=== PATIENT | male | born 1990 | race Caucasian/White ===

== ENCOUNTER 2021-08-28 14:24 | Outpatient (CLI) | payer OTHER, SELFPAY ==
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
[2021-08-28 15:44] LABS: Basophils # 0.1 10^3/uL (0.0-0.1); Basophils % 1.1 %; Eosinophils # 0.4 10^3/uL (0.0-0.8); Eosinophils % 4.8 %; Hematocrit 42.7 % (42.0-52.0); Hemoglobin 14.1 g/dL (11.7-16.6); Lymphocytes # 3.1 10^3/uL (0.8-4.8); Lymphocytes % 35.5 %; Mean Corpuscular Hemoglobin 28.7 pg (28.0-34.0); Mean Platelet Volume 10.3 fL (7.4-10.4); Monocytes # 0.6 10^3/uL (0.2-0.9); Monocytes % 6.7 %; Neutrophils # 4.56 10^3/uL (1.8-7.7); Neutrophils % 51.6 %; Nucleated Red Blood Cells % 0 %; Platelet Count 314 10^3/cmm (130-400); Red Blood Count 4.91 10^6/uL (4.1-5.3); Red Cell Distribution Width 13.2 % (12.1-15.1); White Blood Count 8.8 10^3/uL (4.0-10.0)
[2021-08-28 16:16] LABS: Alanine Aminotransferase 14 U/L (0-41); Albumin Level 4.4 g/dL (3.5-5.2); Alkaline Phosphatase 61 IU/L (40-130); Anion Gap 18.2 (5-19); Aspartate Amino Transferase 14 U/L (0-40); Blood Urea Nitrogen 15 mg/dL (6-20); Calcium 8.8 mg/dL (8.5-10.5); Carbon Dioxide 23 mmol/L (22-29); Chloride 102 mmol/L (98-107); Chol HDL Ratio 3.92 mg/dL (1.0-5.00); Cholesterol 204 mg/dL (0-200); Globulin 2.8 g/dL (1.3-4.6); Glomerular Filtration Rate 99.8 mL/min (90-130); Glucose 90 mg/dL (65-115); HDL Cholesterol 52 mg/dL (60-100); LDL Cholesterol Calculated 98 mg/dL (50-129); LDL HDL Ratio 1.88 RATIO (0.00-3.22); Osmolality Calculated 288 mOsm/kg (285-295); Potassium 4.2 mmol/L (3.5-5.1); Sodium 139 mmol/L (136-145); Testosterone Total 47.4 ng/dL (249-836); Thyroid Stimulating Hormone 3.15 uIU/mL (0.27-4.20); Total Bilirubin 0.2 mg/dL (0.15-1.2); Total Protein 7.2 g/dL (6.6-8.7); Triglycerides 271 mg/dL (0-150)
[2021-08-28 16:29] LABS: Estmated Average Glucose 131; Hemoglobin A1C 6.2 % (4.0-6.0)
[2021-08-28 17:11] LABS: Vitamin B12 618 pg/mL (232-1245)
[2021-08-29 06:12] LABS: T4 Total 6.6 mcg/dL (4.9-10.5)
== END 2021-08-28 14:25 | disposition home or self-care (01) ==
LOC: RAD 14:31
PROVIDERS: PCP Nurse Practitioner Family; Visit Provider Nurse Practitioner Family
DX: M54.50 Low back pain, unspecified (principal); V89.2XXA Person injured in unspecified motor-vehicle accident, traffic, initial encounter; M54.6 Pain in thoracic spine
CPT/HCPCS: 36415; 72072; 72100; 80053; 80061; 82607; 83036; 84403; 84436; 84443; 85025

== ENCOUNTER 2021-10-17 14:13 | Outpatient (CLI) | payer OTHER, SELFPAY ==
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
== END 2021-10-17 14:14 | disposition home or self-care (01) ==
LOC: RAD 14:16
PROVIDERS: PCP Nurse Practitioner Family; Visit Provider Nurse Practitioner Family
DX: M62.838 Other muscle spasm (principal); V89.2XXD Person injured in unspecified motor-vehicle accident, traffic, subsequent encounter; M51.26 Other intervertebral disc displacement, lumbar region; M47.816 Spondylosis without myelopathy or radiculopathy, lumbar region
CPT/HCPCS: 72141; 72146; 72148

== ENCOUNTER → 2022-01-18 15:00 | Outpatient (BNVA) | payer OTHER, SELFPAY | PROVIDERS: PCP Nurse Practitioner Family; Visit Provider Nurse Practitioner | DX: R06.02 Shortness of breath (principal) | CPT/HCPCS: 71046; 84403; 85025 ==

== ENCOUNTER 2023-06-04 18:36 | Emergency (ER) | payer OTHER, SELFPAY ==
--- NOTE | 2023-06-04 18:40 | USR_ITS ---
PROCEDURE INFORMATION: Exam: US Abdomen, Limited; Right Upper Quadrant Exam date and time: 06/04/2023 7:07 PM Age: 33 years old Clinical indication: Abdominal pain; Other: Ruq pain x 4-5 days with diarrhea, n+v TECHNIQUE: Imaging protocol: Real time ultrasound of the abdomen with image documentation. Limited exam focused on the right upper quadrant. COMPARISON: MR lumbar spine wo con* [id number] 10/17/2021 4:28 PM FINDINGS: Liver: Liver is slightly enlarged measuring about 17.8 cm in length. Suspect fatty infiltration. Normal directional flow in the portal vein. Gallbladder: No gallstones or sludge. However there is wall thickening measuring about 5.4 mm. Foster's sign reported positive. Biliary ducts: Normal. No stones. No dilation. Pancreas: The pancreas was obscured. Right kidney: Normal. No mass. No hydronephrosis. US/US gall bladder [id number] IMPRESSION: 1. Mildly enlarged liver with fatty infiltration. 2. Thickened gallbladder wall with no stones or sludge but positive Foster's sign. Questionable acalculous cholecystitis.
[2023-06-04 18:46] VITALS: BP 180/128; PULSE 75; RESP 16; TEMP 36.7; O2SAT 100; BMI 36.6
--- NOTE | 2023-06-04 19:49 | W.ED.ABDPA2 ---
HPI - Abdominal Pain General: Chief Complaint: Abdominal Pain Stated Complaint: Clinic Sent Possible Gallbladder Time Seen by Provider: 06/04/23 19:15 Source: patient Mode of arrival: ambulatory Limitations: no limitations History of Present Illness: 33-year-old male states that over the last week he has been having right upper quadrant pain. He states the pain is mainly after he eats he states that after he eats he gets a sharp stabbing pain in his right upper quadrant he has had nausea with it as well along with some vomiting diarrhea. He denies any fevers no history of any abdominal surgeries in the past. Associated Symptoms: Reports diarrhea, nausea and vomiting; Denies chills and fever(s) Review of Systems Const: Denies: fever(s) or chills ENMT: Denies: throat pain or dental pain Card: Denies: chest pain Resp: Denies: dyspnea GI: Reports: abdominal pain, nausea, vomiting and diarrhea Musc: Denies: neck pain or back pain Skin/Breast: Denies: rash Neuro: Denies: headache(s) PFSH ED PFSH: Medical History Essential hypertension Long-term current use of testosterone replacement therapy Surgical History History of surgery on right wrist Family History Father Diabetes Denies family history of CAD (coronary artery disease) Chronic kidney disease (CKD) Cancer Hypertension Stroke Social History Smoking and tobacco status: never smoked Second hand smoke exposure: No Smoking risk assessment/counseling performed?: No Alcohol intake: current Alcohol intake frequency: holidays/special occasions only Desire information about alcohol rehabilitation?: No Counseling given: No Substance/Drug Use: never Desire information about substance/drug rehabilitation?: No Counseling given: No Adopted: No Caregiver/support person: No Lives independently: Yes Household members: significant other and children Housing: House Marital status: Single Number of children: 2 service: No Current occupational status: employed 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 Pets and animals: No Do you think of yourself as: Straight/Heterosexual Current gender identity: Male Physical Exam Const: COMMON NORMALS: no acute distress, patient oriented x3 and healthy appearing HENMT: COMMON NORMALS: normocephalic and atraumatic HEAD & SCALP: normocephalic and atraumatic Neck/C-Spine: COMMON NORMALS: full ROM and supple Chest: COMMONS NORMALS: normal inspection of the chest Resp: COMMON NORMALS: normal respiratory effort, No retractions, No use of accessory muscles and clear to auscultation bilaterally AUSCULTATION: clear to auscultation bilaterally Cardio: COMMON NORMALS: regular rate, regular rhythm and No murmurs present (Cardio) RATE: regular rate RHYTHM: regular rhythm GI: COMMON NORMALS: Normal to inspection, nondistended, normoactive bowel sounds present, Soft to palpation and no masses PALPATION: Yes Soft to palpation and Yes Tenderness to palpation present (GI) Details: RUQ Extremity: COMMON NORMALS: normal to inspection and full ROM Neuro: COMMON NORMALS: patient oriented x3, moves all extremities and no focal motor deficits Psych: COMMON NORMALS: mental status grossly normal, Normal thought process present and cooperative THOUGHT PROCESS: Normal thought process present Skin: COMMON NORMALS: no rashes or lesions noted and no wounds GENERAL SKIN EXAM: no rashes or lesions noted Course Vital Signs: Vital signs: Vital Signs Temperature 98.0 F 06/04/23 21:51 Pulse Rate 73 06/04/23 21:51 Respiratory Rate 16 06/04/23 21:51 Blood Pressure 151/105 06/04/23 21:51 Pulse Oximetry 98 06/04/23 21:51 Oxygen Delivery Me thod Room Air 06/04/23 18:46 MDM - Abdominal Pain Medical Decision Making 33-year-old male he states that he been having abdominal pain ultrasound did show slightly thickened gallbladder wall his pains improved here he has no tenderness at discharge he has no white count or fever no signs of acute cholecystitis we will place him on Augmentin along with pain meds we will get him follow-up with surgery I did inform if he has fever or worsening pain he is to return he understands agrees to plan. Medical Records I reviewed the patient's medical records. Lab Data I reviewed the patient's lab results. 06/04/23 19:52 06/04/23 19:52 Labs/Radiology: Radiology Impressions Gallbladder Ultrasound 06/04/23 18:40 IMPRESSION: 1. Mildly enlarged liver with fatty infiltration. 2. Thickened gallbladder wall with no stones or sludge but positive Foster's sign. Questionable acalculous cholecystitis. Laboratory Results WBC 10.47 10^3/uL (3.29-11.43) 06/04/23 19:52 Corrected WBC Cancelled 06/04/23 19:00 RBC 5.03 10^6/uL (3.85-5.65) 06/04/23 19:52 Hgb 14.40 g/dL (11.27-16.99) 06/04/23 19:52 Hct 43.3 % (37-53) 06/04/23 19:52 MCV 86.1 fl (82-101) 06/04/23 19:52 MCH 28.6 pg (27-33) 06/04/23 19:52 MCHC 33.3 g/dL (30-55) 06/04/23 19:52 RDW 13.5 % (12.1-15.1) 06/04/23 19:52 Plt Count 373 10^3/cmm (157-399) 06/04/23 19:52 MPV 10.0 fL (7.4-10.4) 06/04/23 19:52 Gran % Cancelled 06/04/23 19:00 Neut % (Auto) 54.9 % 06/04/23 19:52 Lymph % (Auto) 36.1 % 06/04/23 19:52 [place] % (Auto) 5.3 % 06/04/23 19:52 Eos % (Auto) 2.3 % 06/04/23 19:52 Baso % (Auto) 0.8 % 06/04/23 19:52 Neut # (Auto) 5.76 10^3/uL (1.8-7.7) 06/04/23 19:52 Lymph # (Auto) 3.8 10^3/uL (0.8-4.8) 06/04/23 19:52 [place] # (Auto) 0.6 10^3/uL (0.2-0.9) 06/04/23 19:52 Eos # (Auto) 0.2 10^3/uL (0.0-0.8) 06/04/23 19:52 Baso # (Auto) 0.1 10^3/uL (0.0-0.1) 06/04/23 19:52 Absolute Gran (auto) Cancelled 06/04/23 19:00 Nucleated RBC % (auto) 0 % 06/04/23 19:52 Nucleated RBCs # 0.0 /100WBC 06/04/23 19:52 Sodium 140 mmol/L (136-145) 06/04/23 19:52 Potassium 4.0 mmol/L (3.5-5.1) 06/04/23 19:52 Chloride 102 mmol/L (98-107) 06/04/23 19:52 Carbon Dioxide 28 mmol/L (22-29) 06/04/23 19:52 Anion Gap 14.0 (5-19) 06/04/23 19:52 BUN 12 mg/dL (6-20) 06/04/23 19:52 Creatinine 1.2 mg/dL (0.7-1.2) 06/04/23 19:52 GFR Calculation 70.6 mL/min (90-130) L 06/04/23 19:52 Glucose 106 mg/dL (65-115) 06/04/23 19:52 Calculated Osmolality 290 mOsm/kg (285-295) 06/04/23 19:52 Calcium 9.1 mg/dL (8.5-10.5) 06/04/23 19:52 Total Bilirubin 0.2 mg/dL (0.15-1.2) 06/04/23 19:52 AST 17 U/L (0-40) 06/04/23 19:52 ALT 25 U/L (0-41) 06/04/23 19:52 Alkaline Phosphatase 82 U/L (40-130) 06/04/23 19:52 Total Protein 7.8 g/dL (6.6-8.7) 06/04/23 19:52 Albumin 4.8 g/dL (3.5-5.2) 06/04/23 19:52 Globulin 3.0 g/dL (1.3-4.6) 06/04/23 19:52 Lipase 30 U/L (13-60) 06/04/23 19:52 All radiology interpretation(s) finalized by discharge Discharge Plan Discharge Patient Disposition: Home Clinical Impression: Abdominal pain Condition: Stable Prescriptions: New hydrocodone-acetaminophen 5-325 mg tablet 1 tab PO Q6H PRN (Reason: pain) Qty: 14 0RF ondansetron 4 mg tablet,disintegrating 4 mg PO Q6H PRN (Reason: nausea and vomiting) Qty: 14 0RF Augmentin 500-125 mg tablet 1 tab PO BID Qty: 14 0RF No Action doxycycline hyclate [Vibramycin] 100 mg capsule 100 mg PO BID Qty: 20 0RF prednisone 5 mg tablet 5 mg PO DAILY Qty: 5 0RF lisinopril 20 mg tablet 20 mg PO DAILY testosterone cypionate 200 mg/mL oil 300 mg SUBCUT .21 days duloxetine 30 mg capsule,delayed release(DR/EC) 30 mg PO DAILY Qty: 30 1RF gabapentin 800 mg tablet 800 mg PO BID Qty: 60 5RF Discharge Orders: Discharge ED (Routine); Ordered 06/04/23 Ordered By: Adrián Pritchard Referrals: Neftali Buck DO [Physician] - 1-3 days Discharge Diet: Advance as tolerated Discharge Activity: Resume usual activity Patient Instructions: Biliary Colic (ED), Abdominal Pain (ED) 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
[2023-06-04] MEDS: ondansetron 2 mg/ML SDV 2 mL 4 MG IVP ×2 (20:03→21:47)
[2023-06-04 20:05] VITALS: RESP 16
[2023-06-04 20:05] LABS: Basophils # 0.1 10^3/uL (0.0-0.1); Basophils % 0.8 %; Eosinophils # 0.2 10^3/uL (0.0-0.8); Eosinophils % 2.3 %; Hematocrit 43.3 % (37-53); Lymphocytes # 3.8 10^3/uL (0.8-4.8); Lymphocytes % 36.1 %; Mean Corpuscular HGB Conc 33.3 g/dL (30-55); Mean Corpuscular Hemoglobin 28.6 pg (27-33); Mean Corpuscular Volume 86.1 fl (82-101); Monocytes # 0.6 10^3/uL (0.2-0.9); Monocytes % 5.3 %; Neutrophils # 5.76 10^3/uL (1.8-7.7); Neutrophils % 54.9 %; Nucleated Red Blood Cells % 0 %; Platelet Count 373 10^3/cmm (157-399); Red Blood Count 5.03 10^6/uL (3.85-5.65); Red Cell Distribution Width 13.5 % (12.1-15.1); White Blood Count 10.47 10^3/uL (3.29-11.43)
[2023-06-04] MEDS: morphine 4 mg/mL SDV 1 mL IVP (20:05)
[2023-06-04 20:24] VITALS: BP 151/105; PULSE 73; RESP 16; O2SAT 98
[2023-06-04 20:33] LABS: Alanine Aminotransferase 25 U/L (0-41); Albumin Level 4.8 g/dL (3.5-5.2); Alkaline Phosphatase 82 U/L (40-130); Aspartate Amino Transferase 17 U/L (0-40); Blood Urea Nitrogen 12 mg/dL (6-20); Calcium 9.1 mg/dL (8.5-10.5); Carbon Dioxide 28 mmol/L (22-29); Chloride 102 mmol/L (98-107); Glomerular Filtration Rate 70.6 mL/min (90-130); Glucose 106 mg/dL (65-115); Lipase 30 U/L (13-60); Osmolality Calculated 290 mOsm/kg (285-295); Sodium 140 mmol/L (136-145); Total Bilirubin 0.2 mg/dL (0.15-1.2); Total Protein 7.8 g/dL (6.6-8.7)
[2023-06-04 21:51] VITALS: BP 151/105; PULSE 73; RESP 16; TEMP 36.7; O2SAT 98
--- NOTE | 2023-06-05 08:06 | PC.SOCIAL ---
General Surgery F/u Message sent to clinic at this time requesting appt, clinic to contact patient with appt date/time.
== END 2023-06-04 21:52 | disposition home or self-care (01) ==
PROVIDERS: Emergency Provider Emergency Medicine
DX: R10.11 Right upper quadrant pain (principal); I10 Essential (primary) hypertension; Z79.890 Hormone replacement therapy
CPT/HCPCS: 36415; 76705; 80053; 83690; 85025; 96374; 96375; 96376; 99284; J2270; J2405

== ENCOUNTER → 2023-08-07 16:12 | Outpatient (BNVA) | payer OTHER, SELFPAY | PROVIDERS: PCP Nurse Practitioner Family; Visit Provider Nurse Practitioner Family | DX: J02.9 Acute pharyngitis, unspecified (principal) | CPT/HCPCS: 87071; 87880 ==

== ENCOUNTER 2024-08-21 20:31 | Emergency (ER) | payer BC, SELFPAY ==
[2024-08-21 20:33] VITALS: BP 153/84; PULSE 74; RESP 17; TEMP 36.7; O2SAT 100; BMI 32.5
--- NOTE | 2024-08-21 20:47 | XRR_ITS ---
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 Has laceration to anterior aspect of finger. PT has hand wrapped at this time with bleeding controlled. Prior surgery; Surgery date: 6+ months; Surgery type: Right wrist TECHNIQUE: Imaging protocol: Radiologic exam of the right hand. Views: 3 or more views. COMPARISON: No relevant prior studies available. FINDINGS: Bones/joints: The middle finger is intact. The remaining bones of the hand are intact. No significant degenerative changes. There is chronic internal fixation of the scaphoid. Soft tissues: Mild swelling of the 3rd finger. XR/XR hand RT min 3V* [id number] IMPRESSION: 1. No acute bony findings 2. Chronic internal fixation of the scaphoid
[2024-08-21] MEDS: tetanus-dipt-pertussis 0.5 mL SDV IM (20:58)
[2024-08-21] MEDS: HYDROcodone-acetaminophen 7.5-325 mg Tablet 1 TAB PO (20:59)
--- NOTE | 2024-08-21 21:34 | W.ED.EXTPRO ---
HPI - Extremity Problem General: Chief complaint: Extremity Injury, Upper Stated complaint: Injury Rt Hand Time Seen by Provider: 08/21/24 20:44 Source: patient Mode of arrival: ambulatory Limitations: no limitations History of Present Illness: Patient is a 34-year-old male who presents to the emergency department after injuring right hand just prior to arrival. He was reportedly doing [employer] work and got it jammed and subsequently cut, arrives with a laceration to volar aspect of right middle finger, bleeding controlled. Not on any blood thinners. Tetanus not up-to-date. Reporting some numbness to the middle finger. No other injuries or pertinent historical factors to report at this time. He is right-hand dominant. MD Complaint: extremity pain Onset (ago): minute(s) Pain Consistency: constant Location: right and upper extremity Radiation: distal Relieving factors: nothing Associated symptoms: Deny chest pain, fever(s) or rash Related Data Home Medications Medication Instructions Recorded Confirmed lisinopril 20 mg tablet 20 mg PO DAILY 01/18/22 07/21/24 testosterone cypionate 200 mg/mL 300 mg SUBCUT .21 days 01/18/22 05/05/24 intramuscular oil Previous Rx's Medication Instructions Recorded duloxetine 30 mg capsule,delayed 30 mg PO DAILY #30 caps 01/26/23 release ondansetron 4 mg disintegrating 4 mg PO Q6H PRN nausea and 07/08/23 tablet vomiting #30 tabs azithromycin 250 mg tablet See Rx Instructions PO .COMPLEX #6 08/07/23 tabs [id number] 3.5 2 drp ophthalmic (eye) Q4H 7 days 08/07/23 mg/mL-10,000 unit/mL-0.1% eye #5 mL drops (Maxitrol) ondansetron 4 mg disintegrating 4 mg PO Q6H PRN nausea and 08/07/23 tablet vomiting #20 tabs pantoprazole 40 mg tablet,delayed 40 mg PO DAILY stomach acid #90 08/28/23 release tabs cyclobenzaprine 10 mg tablet 10 mg PO TID PRN muscle spasm #30 02/11/24 tabs gabapentin 800 mg tablet 800 mg PO BID #60 tabs 04/27/24 ketoconazole 2 % topical cream 1 applic topical BID #15 grams 05/04/24 prednisone 10 mg tablets in a dose See Rx Instructions PO PER PKG DIR 05/04/24 pack #21 ea terbinafine HCl 250 mg tablet 250 mg PO DAILY #14 tabs 05/04/24 triamcinolone acetonide 0.1 % 1 applic topical TID #15 grams 05/04/24 topical ointment hydrocodone 5 mg-acetaminophen 325 1 - 2 tab PO Q6H PRN pain 1 week 08/12/24 mg tablet #56 tabs prednisone 20 mg tablet See Rx Instructions PO BID #15 tabs 08/14/24 cephalexin 500 mg capsule 500 mg PO BID 7 days #14 caps 08/21/24 Allergies Allergy/AdvReac Type Severity Reaction Status Date / Time No Known Allergies Allergy Unverified 08/21/24 20:33 Review of Systems General: Reports: 10 or more systems reviewed and unremarkable except in HPI and below Const: Denies: fever(s) or chills Card: Denies: chest pain Resp: Denies: dyspnea GI: Denies: abdominal pain, nausea, vomiting or diarrhea Musc: Reports: extremity pain (Right hand); Denies: joint pain Skin/Breast: Reports: new lesions (Laceration to right middle finger); Denies: rash, skin pain or skin tenderness Neuro: Denies: headache(s) PFSH ED PFSH: Medical History Long-term current use of testosterone replacement therapy Essential hypertension Surgical History History of surgery on right wrist Family History Father Diabetes Denies family history of CAD (coronary artery disease) Chronic kidney disease (CKD) Cancer Hypertension Stroke Social History Smoking and tobacco/nicotine status: never used tobacco/nicotine Second hand smoke exposure: No Alcohol intake: current Alcohol intake frequency: holidays/special occasions only Substance/Drug Use: never Adopted: No Caregiver/support person: No Lives independently: Yes Household members: significant other and children Housing: House Marital status: Single Number of children: 2 service: No Current occupational status: employed 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 Pets and animals: No Do you think of yourself as: Straight/Heterosexual Current gender identity: Male Physical Exam Const: COMMON NORMALS: no acute distress, average body habitus, patient oriented x3, no limitations, healthy appearing, alert and well nourished HENMT: COMMON NORMALS: normocephalic and atraumatic HEAD & SCALP: normocephalic and atraumatic Neck/C-Spine: COMMON NORMALS: full ROM, no lymphadenopathy, supple and no meningeal signs Resp: COMMON NORMALS: normal respiratory effort, No use of accessory muscles and clear to auscultation bilaterally AUSCULTATION: clear to auscultation bilaterally Cardio: COMMON NORMALS: regular rate and regular rhythm RATE: regular rate RHYTHM: regular rhythm Extremity: NARRATIVE EXTREMITY EXAM: Patient's right third and fourth finger diffusely tender to palpation, endorsing some distal numbness to the right middle finger. Neuro: COMMON NORMALS: patient oriented x3 SENSORIUM/ORIENTATION: Yes alert MENINGEAL SIGNS: Yes no meningeal signs Skin: COMMON NORMALS: turgor normal NARRATIVE SKIN EXAM: Large, 3.5 cm laceration to volar aspect of right middle finger. No active bleeding, foreign body, contamination at this time. GENERAL SKIN EXAM: turgor normal Procedures Laceration Laceration 1: Site: hand Side (If applicable): right Size (cm): 3.5 Description: linear and clean Depth: simple, single layer Pre-repair: wound explored, irrigated extensively and deep structures intact Skin layer closed with: nylon Size (cm): 5-0 Number of sutures: 8 Technique: simple, interrupted Nerve Block Nerve Block 1: Local Anesthetic: lidocaine 2% Amount of anesthesia used (mL): 10 Side: right Nerve Blocks: digital Procedure Successful: Yes Patient Tolerated Procedure: well Complications: none Course Vital Signs: Vital signs: Vital Signs Temperature 98.0 F 08/21/24 20:33 Pulse Rate 74 08/21/24 20:33 Respiratory Rate 17 08/21/24 20:33 Blood Pressure 153/84 08/21/24 20:33 Pulse Oximetry 100 08/21/24 20:33 Oxygen Delivery Me thod Room Air 08/21/24 20:33 MDM - Extremity (Nontraumatic) Medical Decision Making Patient's x-ray negative for any fracture after he injured it working on his gun. He did have full range of motion of the right middle finger where the laceration was, and upon flexing and extending it there is no sign of underlying musculoskeletal or tendon involvement. This does appear to be limited to the superficial skin layers, and wound was closed without complications. See procedure note. Will be started on prophylactic antibiotics and his tetanus was updated today. He will have follow-up with primary care to have the sutures removed. He was endorsing some numbness at time of examination but this has improved throughout his ED stay. Return precautions were given. Lab Data Radiology Impressions Hand X-Ray 08/21/24 20:47 IMPRESSION: 1. No acute bony findings 2. Chronic internal fixation of the scaphoid All radiology interpretation(s) finalized by discharge Discharge Plan Discharge Patient Disposition: Home Clinical Impression: Laceration of right middle finger Qualifiers: Encounter type: initial encounter Damage to nail status: without damage Foreign body presence: without foreign body Qualified Code(s): S61.212A - Laceration without foreign body of right middle finger without damage to nail, initial encounter Condition: Stable Prescriptions: New cephalexin 500 mg capsule 500 mg PO BID 7 Days Qty: 14 0RF No Action lisinopril 20 mg tablet 20 mg PO DAILY testosterone cypionate 200 mg/mL oil 300 mg SUBCUT .21 days azithromycin 250 mg tablet See Rx Instructions PO .COMPLEX Qty: 6 0RF Rx Instructions: For 250 mg dose pack: take 500 mg today (day 1), then 250 mg for 4 days (days 2-5) PO ondansetron 4 mg tablet,disintegrating 4 mg PO Q6H PRN (Reason: nausea and vomiting) Qty: 20 2RF neomycin-polymyxin B-dexameth [Maxitrol] 3.5mg/mL-10,000 unit/mL-0.1 % drops,suspension 2 drp ophthalmic (eye) Q4H 7 Days Qty: 5 0RF prednisone 10 mg tablets,dose pack See Rx Instructions PO PER PKG DIR Qty: 21 0RF Rx Instructions: PO PER PKG DIR triamcinolone acetonide 0.1 % ointment 1 applic topical TID Qty: 15 0RF terbinafine HCl 250 mg tablet 250 mg PO DAILY Qty: 14 0RF ketoconazole 2 % cream 1 applic topical BID Qty: 15 2RF cyclobenzaprine 10 mg tablet 10 mg PO TID PRN (Reason: muscle spasm) Qty: 30 0RF duloxetine 30 mg capsule,delayed release(DR/EC) 30 mg PO DAILY Qty: 30 1RF ondansetron 4 mg tablet,disintegrating 4 mg PO Q6H PRN (Reason: nausea and vomiting) Qty: 30 1RF pantoprazole 40 mg tablet,delayed release (DR/EC) 40 mg PO DAILY Qty: 90 3RF gabapentin 800 mg tablet 800 mg PO BID Qty: 60 5RF hydrocodone-acetaminophen 5-325 mg tablet 1 - 2 tab PO Q6H PRN (Reason: pain) 7 Days Qty: 56 0RF prednisone 20 mg tablet See Rx Instructions PO BID Qty: 15 0RF Rx Instructions: take 2 tabs po qday x 5 days, then 1 po qday x 5 days for back inflammation Discharge Orders: Discharge ED (Routine); Ordered 08/21/24 Ordered By: Sean Wolf Referrals: Wellington Daugherty, [Primary Care Provider] - Patient Instructions: Finger Laceration (ED) Activity Restrictions/Additional Instructions: See attached patient instructions for further education. Please have your sutures out in 5 to 7 days. Do not soak your finger in water, when you clean dab lightly with warm soap and water and then dab dry afterwards. Tylenol and ibuprofen for pain relief at home. Monitor for any signs of infection and return to the ED as warranted. Please avoid moving your finger is much as possible, you may rebeka tape with adjacent finger to act as a splint. 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
[2024-08-21] MEDS: cephALEXin 500 mg Capsule PO (22:47)
[2024-08-21] MEDS: HYDROcodone-acetaminophen 7.5-325 mg Tablet 2 TAB PO (22:48)
[2024-08-21 23:03] VITALS: BP 162/83; PULSE 74; RESP 16; O2SAT 98
== END 2024-08-21 23:05 | disposition home or self-care (01) ==
PROVIDERS: Emergency Provider Physician Assistant; PCP Family Medicine
DX: S61.212A Laceration without foreign body of right middle finger without damage to nail, initial encounter (principal); I10 Essential (primary) hypertension; X58.XXXA Exposure to other specified factors, initial encounter
CPT/HCPCS: 12002; 73130; 90471; 90715; 99283